=== PATIENT | male | born 1985 ===

== ENCOUNTER 2019-03-16 02:05 | Emergency (ER) | payer SELFPAY ==
[2019-03-16 02:07] VITALS: BP 135/98
--- NOTE | 2019-03-16 02:09 | ER Report ---
History and Physical Time Seen By MD: 02:01 HPI/ROS CHIEF COMPLAINT: Senior Living clearance HISTORY OF PRESENT ILLNESS: 33-year-old male brought in by police for senior living clearance. Patient voices no complaints. He appears intoxicated. He appears without obvious injuries or distress. REVIEW OF SYSTEMS: Respiratory: No cough, no dyspnea. Cardiovascular: No chest pain, no palpitations. Gastrointestinal: No vomiting, no abdominal pain. Musculoskeletal: No back pain. Reviewed Nurses Notes: Yes Old Medical Records Reviewed: Yes Constitutional Vital Sign - Last 24 Hours 03/16/19 02:07 Temp 98.5 Pulse 83 Resp 16 B/P (MAP) 135/98 Pulse Ox 96 Physical Exam Vital signs stable, afebrile, pulse ox normal General Appearance: The patient is alert, has no immediate need for airway protection and no current signs of toxicity. Slurred speech consistent with intoxication. Palpation of the head and neck reveal no tenderness or trauma HEENT: Pupils equal and round no injection. TMs normal, oropharynx without redness or exudate Respiratory: Chest is non tender, lungs are clear to auscultation. Cardiac: regular rate and rhythm Gastrointestinal: Abdomen is soft and non tender, no masses, bowel sounds normal. Musculoskeletal: Neck: Neck is supple and non tender. Extremities have full range of motion and are non tender. Skin: No rashes or lesions. DIFFERENTIAL DIAGNOSIS: After history and physical exam differential diagnosis was considered for senior living clearance, polysubstance abuse, alcohol intoxication Medical Decision Making ED Course/Re-evaluation ED Course Patient was minute to an examination room. H&P was done. The differential diagnoses was considered. On conical examination. Patient voices no complaint. He has normal vital signs. He has no findings of injury. On clinical examination. Patient's medically cleared for senior living admission. Decision to Disposition Date: Mar 16, 2019 Decision to Disposition Time: 02:08 Depart Departure Latest Vital Signs Vital Signs Date Time Temp Pulse Resp B/P (MAP) Pulse Ox O2 Delivery O2 Flow Rate FiO2 03/16/19 02:07 98.5 83 16 135/98 96 Impression: Primary Impression: Medical clearance for incarceration Additional Impression: Alcohol intoxication Condition: Improved Disposition: [facility], [facility] TO PRISON/CORRECTIONAL F Patient Instructions: Alcohol Intoxication (ED) Additional Instructions: Medically cleared for senior living admission Problem Qualifiers Additional Impression: Alcohol intoxication Complication of substance-induced condition: uncomplicated Qualified Codes: F10.920 - Alcohol use, unspecified with intoxication, uncomplicated MANDEEP KENDALL DO Mar 16, 2019 02:09
== END 2019-03-16 02:17 ==
LOC: ER 02:14
DX: F10.920 Alcohol use, unspecified with intoxication, uncomplicated (principal)
CPT/HCPCS: 99281